=== PATIENT | male | born 1965 | race American Indian/Alaskan Native ===

== ENCOUNTER 2024-05-27 09:02 | Inpatient (IN) | payer OTHER ==
[2024-05-27 09:21] VITALS: BMI 29.0
[2024-05-27] MEDS ORDERED: LOPERAMIDE HCL 2 MG CAPSULE PO PRN (10:07)
[2024-05-27] MEDS ORDERED: NALOXONE (NARCAN) HCL 4 MG/0.1 ML SPRAY NS PRN (10:07)
[2024-05-27] MEDS ORDERED: IBUPROFEN 400 MG TABLET (FP) PO PRN (10:07)
[2024-05-27] MEDS ORDERED: MAGNESIUM HYDROX 2400MG/30ML ORAL SUSPENSION 30 ML CUP PO PRN (10:07)
[2024-05-27] MEDS ORDERED: MAG HYDROX/AL HYDROX/SIMETH 30 ML UNIT-DOSE CUP PO PRN (10:07)
[2024-05-27] MEDS ORDERED: DICYCLOMINE HCL 10 MG CAPSULE PO PRN (10:07)
[2024-05-27] MEDS ORDERED: BISMUTH SUBSALICYLATE 524 MG/30 ML PO PRN (10:07)
[2024-05-27] MEDS ORDERED: BENZONATATE 200 MG CAPSULE PO PRN (10:07)
[2024-05-27] MEDS ORDERED: ONDANSETRON *ODT* 4 MG TABLET SL PRN (10:07)
[2024-05-27] MEDS ORDERED: guaiFENesin 600 MG TABLET.ER (FP) PO PRN (10:07)
[2024-05-27] MEDS ORDERED: POLYETHYLENE GLYCOL (HEALTHYLAX) 3350 17 GM PACKET PO PRN (10:07)
[2024-05-27] MEDS: PRENATAL VITAMINS W/ FOLIC ACID TABLET (FP) PO SCH (11:53)
[2024-05-27] MEDS: LIDOCAINE 5% TOPICAL PATCH TP SCH (11:54)
[2024-05-27] MEDS: diazePAM 5 MG TABLET PO PRN (12:22)
[2024-05-27] MEDS: diazePAM 5 MG TABLET PO SCH (17:33)
[2024-05-27] MEDS: THIAMINE 100 MG TABLET PO SCH (22:18)
[2024-05-27] MEDS: MELATONIN 5 MG TABLETS PO SCH (22:18)
[2024-05-27] MEDS: LIDOCAINE PATCH REMOVAL MC SCH (22:20)
[2024-05-28] MEDS: NICOTINE 14 MG/24 HOURS TOPICAL PATCH TD SCH (10:25)
[2024-05-28 11:49] LABS: HEMATOCRIT 45.2 % (40.1-51.0); HEMOGLOBIN 14.4 g/dL (13.7-17.5); MCHC 31.9 g/dl (32.3-36.5); MEAN CELL VOLUME 91.1 fl (79.0-92.2); MEAN PLT VOLUME 10.5 fl (9.4-12.4); PLATELET COUNT 212 x10^3/uL (163-337); RDW 12.8 % (12.2-16.1)
[2024-05-28 11:54] LABS: POTASSIUM 4.3 mmol/L (3.5-5.1)
[2024-05-28 12:02] LABS: ALBUMIN 4.1 g/dl (3.4-5.0); BLOOD UREA NITROGEN 16.2 mg/dL (7-18); CALCIUM 9.1 mg/dL (8.5-10.1)
[2024-05-28 12:06] LABS: CREATININE 0.9 mg/dL (0.55-1.3)
[2024-05-28 12:07] LABS: BILIRUBIN,TOTAL 0.5 mg/dL (0.2-1); TOT PROT 7.4 g/dl (6.4-8.2)
[2024-05-28] MEDS: METHOCARBAMOL 500 MG TABLET PO PRN (16:43)
[2024-05-29] MEDS: diazePAM 5 MG TABLET PO SCH (05:34)
[2024-05-29] MEDS: BENZOCAINE/MENTHOL (CHLORASEPTIC ) LOZENGE MM PRN (10:29)
[2024-05-29] MEDS: IBUPROFEN 600 MG TABLET (FP) PO PRN (22:06)
[2024-05-30] MEDS: diazePAM 5 MG TABLET PO SCH (05:31)
[2024-05-30] MEDS: ACETAMINOPHEN 325 MG TABLET (FP) PO PRN (15:07)
[2024-05-30] MEDS ORDERED: NALTREXONE HCL 50 MG TABLET PO ONE (15:30)
[2024-05-30 17:34] VITALS: RESP 18
[2024-05-31] MEDS: diazePAM 5 MG TABLET PO ONE (05:50)
[2024-05-31] MEDS ORDERED: NALTREXONE HCL 50 MG TABLET PO SCH (10:00)
[2024-05-31] MEDS: hydrOXYzine PAMOATE 25 MG CAPSULE (FP) PO PRN (10:48)
[2024-05-31 12:33] VITALS: BP 121/84; PULSE 84; TEMP 97.7
[2024-05-31] MEDS ORDERED: ACAMPROSATE CALCIUM 333 MG TABLET.DR PO SCH (14:00)
== END 2024-05-31 13:00 | disposition other institution (70) | DRG 774 ==
LOC: YASAS 09:02 → Y6N 11:11
PROVIDERS: ADMIT Allergy & Immunology; ATTEND Allergy & Immunology
PROC: HZ2ZZZZ Detoxification Services for Substance Abuse Treatment (ICD-10-PCS; principal; 2024-05-27)
DX: F10.230 Alcohol dependence with withdrawal, uncomplicated (principal); F14.20 Cocaine dependence, uncomplicated; F12.20 Cannabis dependence, uncomplicated; F17.213 Nicotine dependence, cigarettes, with withdrawal; F19.282 Other psychoactive substance dependence with psychoactive substance-induced sleep disorder; K21.9 Gastro-esophageal reflux disease without esophagitis; Z99.89 Dependence on other enabling machines and devices; Z59.01 Sheltered homelessness
CPT/HCPCS: 36415; 80053; 80305; 80307; 85027; 86780; 93005; 93010

== ENCOUNTER 2024-05-31 13:16 | Inpatient (IN) | payer OTHER ==
[~2024-05-31 13:16] MED LIST: ACETAMINOPHEN 325 MG TABLET (FP) PO PRN; BENZONATATE 200 MG CAPSULE PO PRN; IBUPROFEN 400 MG TABLET (FP) PO PRN; IBUPROFEN 600 MG TABLET (FP) PO PRN; LOPERAMIDE HCL 2 MG CAPSULE PO PRN; MAG HYDROX/AL HYDROX/SIMETH 30 ML UNIT-DOSE CUP PO PRN; MAGNESIUM HYDROX 2400MG/30ML ORAL SUSPENSION 30 ML CUP PO PRN; NALOXONE (NARCAN) HCL 4 MG/0.1 ML SPRAY NS PRN; NICOTINE POLACRILEX 2 MG GUM BUC PRN; NICOTINE POLACRILEX 2 MG LOZENGE BC PRN; POLYETHYLENE GLYCOL (HEALTHYLAX) 3350 17 GM PACKET PO PRN; guaiFENesin 600 MG TABLET.ER (FP) PO PRN; hydrOXYzine PAMOATE 25 MG CAPSULE (FP) PO PRN
[2024-05-31 13:51] VITALS: RESP 18; TEMP 97.3
[2024-05-31] MEDS: MELATONIN 5 MG TABLETS PO SCH (21:29)
[2024-05-31] MEDS: THIAMINE 100 MG TABLET PO SCH (21:29)
[2024-06-01] MEDS: BENZOCAINE/MENTHOL (CHLORASEPTIC ) LOZENGE MM PRN (06:13)
[2024-06-01] MEDS ORDERED: NALTREXONE HCL 50 MG TABLET PO SCH (10:00)
[2024-06-01 10:05] VITALS: BP 108/65; PULSE 88
[2024-06-01] MEDS ORDERED: LIDOCAINE 5% TOPICAL PATCH TP SCH (10:15)
[2024-06-01] MEDS: PRENATAL VITAMINS W/ FOLIC ACID TABLET (FP) PO SCH (10:22)
[2024-06-01] MEDS: NICOTINE 14 MG/24 HOURS TOPICAL PATCH TD SCH (10:23)
[2024-06-01] MEDS ORDERED: LIDOCAINE PATCH REMOVAL MC SCH (22:00)
== END 2024-06-01 10:53 | disposition home or self-care (01) | DRG 772 ==
LOC: YASAS 13:16 → Y3W 13:18
PROVIDERS: ADMIT Psychiatry & Neurology Pain Medicine; ATTEND Psychiatry & Neurology Pain Medicine
PROC: HZ42ZZZ Group Counseling for Substance Abuse Treatment, Cognitive-Behavioral (ICD-10-PCS; principal; 2024-05-31)
DX: F10.20 Alcohol dependence, uncomplicated (principal); F14.20 Cocaine dependence, uncomplicated; F12.20 Cannabis dependence, uncomplicated; F17.210 Nicotine dependence, cigarettes, uncomplicated; F19.282 Other psychoactive substance dependence with psychoactive substance-induced sleep disorder; K21.9 Gastro-esophageal reflux disease without esophagitis; M79.604 Pain in right leg; G89.29 Other chronic pain; Z99.89 Dependence on other enabling machines and devices; Z59.02 Unsheltered homelessness; Z88.0 Allergy status to penicillin